=== PATIENT | female | born 1990 | race American Indian/Alaskan Native ===

== ENCOUNTER 2019-10-18 16:02 | Emergency (ER) | payer SELFPAY ==
[2019-10-18 17:32] VITALS: BP 126/85
--- NOTE | 2019-10-18 17:37 | Emergency Department Report ---
Blank Doc - Documentation Documentation: 29-year-old female that presents with dysuria. This initial assessment/diagnostic orders/clinical plan/treatment(s) is/are subject to change based on patient's health status, clinical progression and re- assessment by fellow clinical providers in the ED. Further treatment and workup at subsequent clinical providers discretion. Patient/guardians urged not to elope from the ED as their condition may be serious if not clinically assessed and managed. Initial orders include: 1- Patient sent to [facility] for further evaluation and treatment 2- UA
[2019-10-18 18:23] LABS: Bilirubin,Urine NEG (Negative); Blood,Urine NEG (Negative); Color,Urine Yellow (Yellow); HCG Qualitative,Urine Negative (Negative); Mucus,Urine 3+ /HPF; Protein,Urine <15 mg/dL mg/dL (Negative)
--- NOTE | 2019-10-18 21:14 | Emergency Department Report ---
ED Female HPI - General Chief complaint: Urogenital-Female Stated complaint: VAGINAL DISCOMFORT/IRRITATION Time Seen by Provider: 10/18/19 17:35 Source: patient Mode of arrival: Ambulatory Limitations: No Limitations - History of Present Illness Initial comments: This is a 29-year-old female presents to ED complaining of burning irritation itching to the vaginal area for the past couple days. Patient states about a week ago she did go to her primary care physician and was treated for UTI patient states she just completed the antibiotics on Wednesday patient stated that symptoms started 2 to 3 days ago. Patient states that she does have some irritation when she pees and the P touches her vaginal burning sensation. She denies any vaginal discharge, dysuria, nausea vomiting or fever. - Related Data Previous Rx's Medication Instructions Recorded Last Taken Type Acyclovir [Zovirax Tab] 800 mg PO Q8H #21 tab 10/18/19 Unknown Rx Ibuprofen [Motrin 800 MG tab] 800 mg PO Q8HR PRN #30 tablet 10/18/19 Unknown Rx Lidocaine/Hydrocortisone AC 7 gm TP BID #1 cream.appl 10/18/19 Unknown Rx [Lidocaine HC 3-1% CREAM] Allergies Allergy/AdvReac Type Severity Reaction Status Date / Time No Known Allergies Allergy Unverified 10/18/19 16:09 ED Review of Systems ROS: Stated complaint: VAGINAL DISCOMFORT/IRRITATION Other details as noted in HPI Comment: All other systems reviewed and negative ED Past Medical Hx - Past Medical History Previous Medical History?: No - Surgical History Past Surgical History?: No - Social History Smoking Status: Never Smoker - Medications Home Medications: Home Medications Medication Instructions Recorded Confirmed Last Taken Type Acyclovir [Zovirax Tab] 800 mg PO Q8H #21 tab 10/18/19 Unknown Rx Ibuprofen [Motrin 800 MG tab] 800 mg PO Q8HR PRN #30 tablet 10/18/19 Unknown Rx Lidocaine/Hydrocortisone AC 7 gm TP BID #1 cream.appl 10/18/19 Unknown Rx [Lidocaine HC 3-1% CREAM] ED Physical Exam - General Limitations: No Limitations General appearance: alert, in no apparent distress - Head Head exam: Present: atraumatic, normocephalic - Eye Eye exam: Present: normal appearance - ENT ENT exam: Present: mucous membranes moist - Neck Neck exam: Present: normal inspection - Respiratory Respiratory exam: Present: normal lung sounds bilaterally. Absent: respiratory distress - Cardiovascular Cardiovascular Exam: Present: regular rate, normal rhythm. Absent: systolic murmur, diastolic murmur, rubs, gallop - GI/Abdominal GI/Abdominal exam: Present: soft, normal bowel sounds - External exam: Present: erythema, lesions (Multiple ulcerated-like lesions consistent with herpes, surrounded around the vagina,). Absent: bleeding Speculum exam: Absent: erythema, vaginal discharge, vaginal bleeding Bi-manual exam: Present: cervical motion tendernes - Extremities Exam Extremities exam: Present: normal inspection - Back Exam Back exam: Present: normal inspection - Neurological Exam Neurological exam: Present: alert, oriented X3 - Psychiatric Psychiatric exam: Present: normal affect, normal mood - Skin Skin exam: Present: warm, dry, intact, normal color. Absent: rash ED Course Vital Signs 10/18/19 16:12 Temperature 98.3 F Pulse Rate 91 H Respiratory 18 Rate Blood Pressure 126/85 O2 Sat by Pulse 100 Oximetry ED Medical Decision Making - Medical Decision Making This 29-year-old female presents with herpes genitalia lesions Discussed with patient that this is an STD and is past sexually. Discussed with patient to follow-up with health department or primary care physician for testing. We will treat patient with acyclovir and Zovirax cream topical. Discussed with patient she may take Motrin every 8 hours as needed for pain Patient's vital signs are normal she is in no acute distress and she understands instructions. I did discuss with patient to avoid intercourse until completion of treatment. Critical care attestation.: If time is entered above; I have spent that time in minutes in the direct care of this critically ill patient, excluding procedure time. ED Disposition Clinical Impression: Herpes genitalis in women, Herpes simplex virus (HSV) infection of vagina Disposition: DC-01 TO HOME OR SELFCARE Is pt being admited?: No Does the pt Need Aspirin: No Condition: Stable Instructions: Genital Herpes Simplex (ED) Additional Instructions: Make sure to follow up with the primary care physician as discussed. Take all your medications as you've been prescribed. If you have any worsening symptoms or develop new symptoms please return to ED immediately. Prescriptions: Lidocaine/Hydrocortisone AC [Lidocaine HC 3-1% CREAM] 7 gm TP BID #1 cream.appl Ibuprofen [Motrin 800 MG tab] 800 mg PO Q8HR PRN #30 tablet PRN Reason: Pain Acyclovir [Zovirax Tab] 800 mg PO Q8H #21 tab Referrals: PRIMARY CARE, [Primary Care Provider] - 3-5 Days [facility] [Outside] - 3-5 Days [facility] [Outside] - 3-5 Days [facility] [Provider Group] - 3-5 Days Forms: Work/School Release Form(ED) Time of Disposition: 21:16
== END 2019-10-18 21:31 | disposition home or self-care (01) ==
LOC: ED 16:02
DX: B00.89 Other herpesviral infection (principal)
CPT/HCPCS: 81001; 81025; 87086; 99283